=== PATIENT | male | born 1980 | race Two or more races ===

== ENCOUNTER 2019-10-23 13:17 | Emergency (ER) | payer OTHER ==
[~2019-10-23] VITALS: Ht 162.6 cm; Wt 68.0 kg
== END 2019-10-23 17:31 | disposition home or self-care (01) ==
LOC: ER 13:17
DX: I15.8 Other secondary hypertension (principal); R51 Headache; T44.4X5A Adverse effect of predominantly alpha-adrenoreceptor agonists, initial encounter; Y92.89 Other specified places as the place of occurrence of the external cause